=== PATIENT | female | born 1975 | race Caucasian/White ===

== ENCOUNTER → 2017-12-17 | Outpatient (CLI) | payer OTHER | END | disposition home or self-care (01) | LOC: MAMMO 14:00 | DX: Z12.31 Encounter for screening mammogram for malignant neoplasm of breast (principal) | CPT/HCPCS: 77063; 77067 ==

== ENCOUNTER → 2019-01-04 | Outpatient (CLI) | payer OTHER ==
[~2019-01-04] MED LIST: CALC-642 PO; CETI10TA22 PO; IBUP200T44 PO; MULT-121 PO; UBID200C7 PO
[2019-01-04 10:23] LABS: BASO # 0.1 x10^3/uL (0.0-0.2); BASO % 1 % (0-3); EOS # 0.2 x10^3/uL (0.0-0.7); EOS % 4 % (0-3); HEMOGLOBIN 14.1 g/dL (12.0-15.5); LYMPH # 1.4 x10^3/uL (1.0-4.8); LYMPH % 27 % (24-48); MEAN CORPUSCULAR HEMOGLOBIN 30 pg (25-35); MEAN CORPUSCULAR HGB CONC 34 g/dL (31-37); MEAN CORPUSCULAR VOLUME 90 fL (79-100); MONO # 0.3 x10^3/uL (0.0-1.1); MONO % 6 % (0-9); NEUT # 3.3 x10^3uL (1.8-7.7); NEUT % 63 % (31-73); PLATELET COUNT 296 x10^3/uL (140-400); RED BLOOD COUNT 4.68 x10^6/uL (3.50-5.40); RED CELL DISTRIBUTION WIDTH 13.3 % (11.5-14.5); WHITE BLOOD COUNT 5.3 x10^3/uL (4.0-11.0)
[2019-01-04 10:52] LABS: ALBUMIN 3.6 g/dL (3.4-5.0); CHOLESTEROL/HDL RATIO 4.3; CREATININE 0.7 mg/dL (0.6-1.0); GFR 91.3; POTASSIUM 3.7 mmol/L (3.5-5.1); TOTAL BILIRUBIN 0.3 mg/dL (0.2-1.0); TOTAL PROTEIN 7.2 g/dL (6.4-8.2)
== END | disposition home or self-care (01) ==
LOC: LAB 09:53
PROVIDERS: ATTEND Nurse Practitioner
DX: E78.2 Mixed hyperlipidemia (principal); D64.9 Anemia, unspecified; E03.9 Hypothyroidism, unspecified
CPT/HCPCS: 36415; 80053; 80061; 84443; 85025

== ENCOUNTER → 2019-01-06 | Outpatient (CLI) | payer OTHER ==
--- NOTE | 2019-01-06 13:44 | RAD ---
DATE: 01/06/2019 EXAM: MAMMO LISY SCREENING BILATERAL HISTORY: Routine screening COMPARISON: 12/17/2017 This study was interpreted with the benefit of Computerized Aided Detection (CAD). Breast Density: DENSE The breast parenchyma is dense, which could reduce the sensitivity of mammography. Breast parenchyma level density D. FINDINGS: 2-D and 3-D tomosynthesis imaging was performed in CC and MLO projections. No new or enlarging breast densities are seen. No spiculated mass is evident. Numerous bilateral microcalcifications are again identified. The distribution suggests a benign etiology such as sclerosing adenosis. IMPRESSION: There is no mammographic evidence of malignancy in either breast. BI-RADS CATEGORY: 2 BENIGN FINDING(S) RECOMMENDED FOLLOW-UP: 12M 12 MONTH FOLLOW-UP PQRS compliance statement: Patient information was entered into a reminder system with a target due date for the next mammogram. Mammography is a sensitive method for finding small breast cancers, but it does not detect them all and is not a substitute for careful clinical examination. A negative mammogram does not negate a clinically suspicious finding and should not result in delay in biopsying a clinically suspicious abnormality. "Our facility is accredited by the [employer] Mammography [employer]."
== END | disposition home or self-care (01) ==
LOC: MAMMO 12:51
PROVIDERS: ATTEND Family Medicine
DX: Z12.31 Encounter for screening mammogram for malignant neoplasm of breast (principal)
CPT/HCPCS: 77063; 77067

== ENCOUNTER → 2019-01-08 | Outpatient (CLI) | payer OTHER ==
--- NOTE | 2019-01-08 17:06 | RAD ---
Pelvic ultrasound HISTORY: Pain and bloating. Transabdominal scan Uterus measures 10.2 cm x 5.0 cm x 5.7 cm. Endometrium measures 11 mm in thickness. Ovaries are not well visualized. Endovaginal scan No evidence of uterine mass. Right ovary measures 2.6 cm with small follicles and intact blood supply. Left ovary measures 3.7 cm with intact blood supply. There is a complex nodule in the left ovary measuring 2.9 cm with hypervascularity. No significant free fluid is identified. Small nabothian cyst is noted. IMPRESSION: 1. Complex 2.9 cm nodule with vascularity in the left ovary. This could represent a hemorrhagic or complex cyst but solid mass is not excludable. This assumes that the patient is not . Recommend follow-up ultrasound in 2-6 weeks. 2. Right ovary and uterus are unremarkable. Electronically signed by: Tyree Price MD (01/08/2019 5:03 PM) [id number]
== END | disposition home or self-care (01) ==
LOC: US 13:35
PROVIDERS: ATTEND Nurse Practitioner
DX: N83.8 Other noninflammatory disorders of ovary, fallopian tube and broad ligament (principal); R14.0 Abdominal distension (gaseous)
CPT/HCPCS: 76830; 76856

== ENCOUNTER → 2019-02-03 | Outpatient (CLI) | payer OTHER ==
--- NOTE | 2019-02-03 15:25 | RAD ---
EXAM: Pelvic sonogram. HISTORY: Left ovarian cyst follow-up. TECHNIQUE: Transabdominal and transvaginal sonographic imaging of the pelvis was performed. COMPARISON: 01/08/2019. FINDINGS: The uterus measures 9.2 x 4.2 x 5.7 cm. The endometrial stripe is heterogeneous and measures 13.2 mm thickness. The right ovary measures 4.0 x 2.4 x 2.8 cm of the left ovary measures 3.3 x 1.9 x 2.5 cm. There is normal blood flow within both ovaries. There is a heterogeneous predominantly isoechoic lesion with peripheral blood flow within the right ovary measuring 1.9 cm. The previously demonstrated left ovarian lesion has resolved. There are antral follicles within both ovaries. There is no pelvic free fluid. There is a nabothian cyst within the cervix. IMPRESSION: 1. Resolution of a previously demonstrated left ovarian lesion. There is now a 1.9 cm heterogeneous lesion with peripheral blood flow within the right ovary, possibly a complex/hemorrhagic cyst. The absence of this lesion on the recent prior sonogram does not favor a solid lesion. Short-term sonographic follow-up is recommended to to confirm resolution. 2. Heterogeneous thickened endometrial stripe, likely due to the phase of the patient's menstrual cycle. Electronically signed by: Emiliana Penn MD (02/03/2019 3:21 PM) [place] [id number]
== END | disposition home or self-care (01) ==
LOC: US 13:53
PROVIDERS: ATTEND Obstetrics & Gynecology
DX: N83.8 Other noninflammatory disorders of ovary, fallopian tube and broad ligament (principal); N88.8 Other specified noninflammatory disorders of cervix uteri
CPT/HCPCS: 76830; 76856

== ENCOUNTER 2019-03-17 07:25 | Day surgery (SDC) | payer OTHER ==
[~2019-03-17 07:25] MED LIST changes: +HYDROmorphone 2 MG/ML VIAL IV PRN; +IV RINGERS,LACTATED 1000ML 1,000 ML IV SCH; +MORPHINE SULFATE 2 MG/ML VIAL. IV PRN; +ONDANSETRON PF 4 MG/2 ML VIAL. IV PRN; +PROCHLORPERAZINE 10 MG/2 ML VIAL. IV PRN; +VASOPRESSIN 20 UNIT/ML VIAL. ONE; +fentaNYL PF VIAL 100 MCG/2 ML VIAL IV PRN
[2019-03-17] MEDS ORDERED: ONDANSETRON PF 4 MG/2 ML VIAL. ONE (08:39)
[2019-03-17] MEDS ORDERED: LIDOCAINE 2% PF 5 ML VIAL. ONE (08:39)
[2019-03-17] MEDS ORDERED: MIDAZOLAM HCL/PF 2 MG/2 ML VIAL. ONE (08:39)
[2019-03-17] MEDS ORDERED: PROPOFOL 20 ML IV ONE (08:39)
[2019-03-17] MEDS ORDERED: DEXAMETHASONE SOD PHOS 4 MG/ML VIAL ONE (08:39)
[2019-03-17] MEDS ORDERED: fentaNYL PF VIAL 100 MCG/2 ML VIAL ONE ×2 (08:39→09:46)
--- NOTE | 2019-03-17 09:48 | PDOC ---
BRIEF OPERATIVE NOTE Date: March 17, 2019 Pre-Op Diagnosis menorrhagia Post-Op Diagnosis same Procedure Performed diagnostic hysteroscopy with novasure endometrial ablation Surgeon Dr. Fanny Rey Anesthesiologist Dr. Meraz Anesthesia Type: General Blood Loss <5cc IV Fluid see anesthesia records Urine Output straight cath prior Specimens Obtained none Findings 9cm uterus, prolif endometrium Complications none Operative Note ablation time 1min 43sec [id number] FANNY REY MD March 17, 2019 09:48
[2019-03-17] MEDS ORDERED: SEVOFLURANE 16 TO 30 MINUTES. IH ONE (09:50)
[2019-03-17] MEDS ORDERED: KETOROLAC 30 MG/ML INJ FOR OR. INJ ONE (09:51)
[2019-03-17] MEDS ORDERED: 0.9 % SODIUM CHLORIDE 10 ML DISP.SYRIN. IV PRN (10:00)
[2019-03-17] MEDS ORDERED: SIMETHICONE 80 MG TAB.CHEW PO PRN (10:00)
[2019-03-17] MEDS ORDERED: NALOXONE 0.4 MG/ML VIAL. IV PRN (10:00)
[2019-03-17] MEDS ORDERED: HYDROcodone/APAP 5/325MG 1 TAB TABLET PO PRN (10:00)
[2019-03-17] MEDS ORDERED: MAG HYDROX/ALUMINUM HYD/SIMETH 30 ML ORAL.SUSP PO PRN (10:00)
[2019-03-17] MEDS ORDERED: diphenhydrAMINE HCL 25 MG CAPSULE PO PRN (10:00)
[2019-03-17] MEDS ORDERED: diphenhydrAMINE 50 MG/ML VIAL IV PRN (10:00)
[2019-03-17] MEDS ORDERED: CALCIUM CARBONATE 500 MG TAB.CHEW PO PRN (10:00)
[2019-03-17 10:05] LABS: U PREG PATIENT NEGATIVE (NEG)
--- NOTE | 2019-03-17 10:09 | OP ---
DATE OF SURGERY: 03/17/2019 PREOPERATIVE DIAGNOSES: Menorrhagia with negative endometrial biopsy in the office showing a proliferative endometrium, desiring NovaSure endometrial ablation. POSTOPERATIVE DIAGNOSES: Menorrhagia with negative endometrial biopsy in the office showing a proliferative endometrium, desiring NovaSure endometrial ablation. PROCEDURE: Diagnostic hysteroscopy with NovaSure endometrial ablation. SURGEON: Stanford Rey MD SEWER TAPPER: OR personnel. ANESTHESIA: General. ANESTHESIOLOGIST: Dr. Meraz. ESTIMATED BLOOD LOSS: Less than 5 mL. IV FLUIDS: Please see anesthesia records. URINE OUTPUT: Just a straight cath prior to surgery. SPECIMENS: None. FINDINGS: A 9 cm uterus with a proliferative endometrium, otherwise normal uterine cavity. COMPLICATIONS: None. DESCRIPTION OF PROCEDURE: This patient was taken to the operating room where anesthesia was placed. The patient was placed in dorsal lithotomy position in Kraig stirrups. The patient's vagina was prepped and draped in the normal sterile fashion and a straight cath urine was done prior to my arrival. Upon my arrival, a timeout was performed. Once everyone agreed, a weighted speculum was placed in the patient's vagina. A single-tooth tenaculum was used to grasp the anterior lip of the cervix. She was dilated with the Hegar dilators to a 9. She sounded to 9 cm. The diagnostic hysteroscopy was performed with the above findings. The NovaSure functional uterine cavity length was set at 6. It was placed in, allowed to open up and the width settled at 4.5. So, the machine was set to 6 for the length and 4.5 for the width. The NovaSure device was enabled and performed a cavity assessment check. Once it passed the cavity assessment check, went straight into the ablation process, which lasted 1 minute and 43 seconds. Once it was done, the device was removed. The tenaculum was removed from the anterior lip of the cervix. There was no active bleeding and the procedure was ended. The weighted speculum was removed and the patient is currently being awakened from anesthesia. STANFORD REY MD DR: LUKE/erica JOB#: [id number] / [id number]
[2019-03-17] MEDS ORDERED: HYDROcodone/APAP 5/325MG 1 TAB TABLET PO ONE (10:15)
[2019-03-17 10:35] VITALS: BP 125/75
== END 2019-03-17 10:58 | disposition home or self-care (01) ==
LOC: SURG 07:25
PROVIDERS: ATTEND Obstetrics & Gynecology
DX: N92.0 Excessive and frequent menstruation with regular cycle (principal); Z98.890 Other specified postprocedural states; Z72.89 Other problems related to lifestyle; Z87.891 Personal history of nicotine dependence; Z79.899 Other long term (current) drug therapy; Z80.3 Family history of malignant neoplasm of breast; Z83.3 Family history of diabetes mellitus; Z81.1 Family history of alcohol abuse and dependence; Z81.8 Family history of other mental and behavioral disorders
CPT/HCPCS: 58563; 81025; A7015; J1100; J1885; J2001; J2250; J2405; J2704; J3010; J7030; J3490

== ENCOUNTER 2019-07-12 13:40 | Emergency (ER) | payer OTHER ==
[~2019-07-12] VITALS: Ht 180.3 cm; Wt 89.6 kg
[~2019-07-12 13:40] MED LIST changes: -HYDROmorphone 2 MG/ML VIAL IV PRN; -IV RINGERS,LACTATED 1000ML 1,000 ML IV SCH; -MORPHINE SULFATE 2 MG/ML VIAL. IV PRN; -ONDANSETRON PF 4 MG/2 ML VIAL. IV PRN; -PROCHLORPERAZINE 10 MG/2 ML VIAL. IV PRN; -VASOPRESSIN 20 UNIT/ML VIAL. ONE; -fentaNYL PF VIAL 100 MCG/2 ML VIAL IV PRN
[2019-07-12 13:54] VITALS: BP 138/80
[2019-07-12] MEDS ORDERED: methylPREDNISolone SOD SUCC PF 125 MG/2 ML VIAL. IM ONE (14:15)
[2019-07-12] MEDS ORDERED: KETOROLAC 60 MG/2 ML VIAL. IM ONE (14:15)
[2019-07-12] MEDS ORDERED: METH4TAB2 PO (14:35)
[2019-07-12] MEDS ORDERED: HYDR-3164 PO (14:35)
[2019-07-12] MEDS ORDERED: CYCL10TA2 PO (14:35)
--- NOTE | 2019-07-12 14:35 | PHYS DOC ---
Past Medical History Past Medical History: Other Additional Past Medical Histor: lower back pain Past Surgical History: Tonsillectomy, Other Additional Past Surgical Histo: microdiscetomy Alcohol Use: None Drug Use: None Adult General Chief Complaint Chief Complaint: LOWER BACK PAIN OR INJURY HPI HPI Patient is a 43 year old female with history of microdiscectomy who presents to the ED today complaining of 8 out of 10 left low back pain radiating to the left hip that began 2 days ago. Patient describes the pain as tightness worse on sitt ing up. She states sometimes laying on her back relieves the pain. Denies any known injury. Denies any loss of bowel/bladder function. She states the pain has gotten increasingly worse today, she states she's been using ibuprofen with minimal relief. Review of Systems Review of Systems Constitutional: Denies fever or chills [] GI: Denies abdominal pain, nausea, vomiting, bloody stools or diarrhea [] : Denies dysuria or hematuria [] Musculoskeletal: Reports left low back pain radiating to the left lower extremity Integument: Denies rash or skin lesions [] Neurologic: Denies headache, focal weakness or sensory changes [] All other systems were reviewed and found to be within normal limits, except as documented in this note. Current Medications Current Medications Current Medications Medications (Trade) Dose Ordered Sig/Anastacio Start Time Stop Time Status Last Admin Dose Admin Ketorolac Tromethamine (Toradol Im) 60 mg 1X ONCE 07/12/19 14:15 07/12/19 14:16 DC Methylprednisolone Sodium Succinate (SOLU-Medrol 125MG VIAL) 125 mg 1X ONCE 07/12/19 14:15 07/12/19 14:16 DC Allergies Allergies Allergies Coded Allergies Type Severity Reaction Last Updated Verified No Known Drug Allergies 03/17/19 No Physical Exam Physical Exam Constitutional: Well developed, well nourished, no acute distress, non-toxic appearance. [] Abdomen: Bowel sounds normal, soft, no tenderness, no masses, no pulsatile masses. [] Skin: Warm, dry, no erythema, no rash. [] Back: Slight tenderness on palpation of paraspinal muscles the left lumbar spine no midline tenderness, no CVA tenderness. Negative bilateral leg straight ra ises. Extremities: No tenderness, no cyanosis, no clubbing, ROM intact, no edema. [] Neurologic: Alert and oriented X 3, normal motor function, normal sensory function, no focal deficits noted. [] Psychologic: Affect normal, judgement normal, mood normal. [] Current Patient Data Vital Signs Vital Signs Date Time Temp Pulse Resp B/P (MAP) Pulse Ox O2 Delivery O2 Flow Rate FiO2 07/12/19 13:54 98.3 70 16 138/80 (99) 98 Room Air 98.3 EKG EKG [] Radiology/Procedures Radiology/Procedures [] Course & Med Decision Making Course & Med Decision Making Pertinent Labs and Imaging studies reviewed. (See chart for details) This is a 43-year-old female patient presented to the ED today with left low back pain radiating to the left hip that began 2 days ago, no known injury. Pain is gotten worse today. Patient was given Toradol and Solu-Medrol in the ED. Follow-up with primary care doctor in the next 1 week. She has no cauda equina syndrome symptoms. Dragon Disclaimer Dragon Disclaimer This electronic medical record was generated, in whole or in part, using a voice recognition dictation system. Departure Departure Impression: Primary Impression: Low back pain Disposition: 01 HOME, SELF-CARE Condition: STABLE Referrals: COOPER CARBAJAL MD (PCP) follow up in one week Patient Instructions: Back Pain, Adult, [id number] Additional Instructions: You were evaluated in the emergency room for low back pain. Take the medication provided as ordered, you can apply heat or ice to your low back. Consider seeing a chiropractor for an adjustment. Follow-up with your doctor in the next 1-2 weeks. Scripts Hydrocodone/Apap 5-325 (NORCO 5-325 TABLET) 1 Each Tablet 1 TAB PO Q6HRS PRN for PAIN, #20 TAB Prov: MUTUNGA,LIANET MUSIC CATALOGUER 07/12/19 Cyclobenzaprine Hcl (CYCLOBENZAPRINE HCL) 10 Mg Tablet 1 TAB PO TID, #30 TAB Prov: MUTUNGA,LIANET MUSIC CATALOGUER 07/12/19 Methylprednisolone (MEDROL) 4 Mg Tab.ds.pk 1 PKG PO UD, #1 PKG Prov: MUTUNGA,LIANET MUSIC CATALOGUER 07/12/19 Problem Qualifiers Primary Impression: Low back pain Chronicity: acute Back pain laterality: left Sciatica presence: with sciatica Sciatica laterality: sciatica of left side Qualified Codes: M54.42 - Lumbago with sciatica, left side LIANET MEJIA APRN Jul 12, 2019 14:35
== END 2019-07-12 14:58 | disposition home or self-care (01) ==
LOC: ER 13:40
DX: M54.42 Lumbago with sciatica, left side (principal); M25.552 Pain in left hip
CPT/HCPCS: 96372; 99284; J1885; J2930

== ENCOUNTER → 2020-06-13 | Outpatient (CLI) | payer OTHER ==
[~2020-06-13] MED LIST changes: -CETI10TA22 PO; +CETI10TA24 PO; +CYCL10TA2 PO; +HYDR-3164 PO; +METH4TAB2 PO
[2020-06-13 08:38] LABS: BASO % 1 % (0-3); EOS # 0.2 x10^3/uL (0.0-0.7); EOS % 4 % (0-3); HEMATOCRIT 41.7 % (36.0-47.0); HEMOGLOBIN 14.2 g/dL (12.0-15.5); LYMPH # 1.2 x10^3/uL (1.0-4.8); LYMPH % 24 % (24-48); MEAN CORPUSCULAR HEMOGLOBIN 31 pg (25-35); MEAN CORPUSCULAR HGB CONC 34 g/dL (31-37); MEAN CORPUSCULAR VOLUME 90 fL (79-100); MONO # 0.3 x10^3/uL (0.0-1.1); MONO % 6 % (0-9); NEUT # 3.3 x10^3/uL (1.8-7.7); NEUT % 65 % (31-73); PLATELET COUNT 307 x10^3/uL (140-400); RED BLOOD COUNT 4.63 x10^6/uL (3.50-5.40); RED CELL DISTRIBUTION WIDTH 12.6 % (11.5-14.5)
[2020-06-13 09:08] LABS: ALBUMIN 3.7 g/dL (3.4-5.0); ALBUMIN/GLOBULIN RATIO 1.1 (1.0-1.7); CALCIUM 8.5 mg/dL (8.5-10.1); CREATININE 0.9 mg/dL (0.6-1.0); POTASSIUM 3.7 mmol/L (3.5-5.1); TOTAL BILIRUBIN 0.4 mg/dL (0.2-1.0); TOTAL PROTEIN 7.2 g/dL (6.4-8.2)
[2020-06-13 09:09] LABS: CHOLESTEROL/HDL RATIO 4.8
== END | disposition home or self-care (01) ==
LOC: LAB 08:17
PROVIDERS: ATTEND Nurse Practitioner
DX: E78.2 Mixed hyperlipidemia (principal)
CPT/HCPCS: 36415; 80053; 80061; 84443; 85025

== ENCOUNTER → 2020-06-19 | Outpatient (CLI) | payer OTHER ==
--- NOTE | 2020-06-19 17:24 | RAD ---
EXAM: BILATERAL DIGITAL 3D SCREENING MAMMOGRAPHY. HISTORY: Routine mammographic screening. TECHNIQUE: Bilateral digital 3D and tomographic images were obtained in CC and MLO projections. Computer-aided detection was applied. COMPARISON: 01/06/2019. COMPOSITION: D. The breasts are extremely dense, which lowers the sensitivity of mammography. FINDINGS: There are no suspicious masses, microcalcifications or architectural distortion. The parenchymal pattern is stable. Scattered calcifications are benign. BI-RADS CATEGORY 2: Benign. RECOMMENDATION: 1. Routine screening mammography in one year. If mammography demonstrates dense breast tissue (heterogenously dense or extremely dense, category C or D), which could hide abnormalities, and if other risk factors for breast cancer have been identified, supplemental screening tests that may be suggested by the ordering physician may be of benefit. Dense breast tissue, in and of itself, is a relatively common condition. Therefore, this information is not provided to cause undue concern, but rather to raise awareness and to promote discussion with the referring physician regarding the presence of other risk factors, in addition to dense breast tissue. The results of this mammography examination is provided to the patient and referring physician. The patient should contact their referring physician if any questions or concerns exist regarding this report. PQRS compliance statement - Patient information was entered into a reminder system with a target due date for the next mammogram. "Our facility is accredited by the [employer] Mammography [employer]." Electronically signed by: Misha Herzog MD (06/19/2020 5:21 PM) [id number]
== END | disposition home or self-care (01) ==
LOC: MAMMO 14:12
PROVIDERS: ATTEND Nurse Practitioner
DX: Z12.31 Encounter for screening mammogram for malignant neoplasm of breast (principal); N64.89 Other specified disorders of breast
CPT/HCPCS: 77063; 77067

== ENCOUNTER → 2021-12-12 | Outpatient (CLI) | payer OTHER ==
[~2021-12-12] MED LIST changes: -CETI10TA24 PO; +CETI10TA74 PO; +CYCL10TA19 PO; -CYCL10TA2 PO
[2021-12-12 08:37] LABS: BASO # 0.1 x10^3/uL (0.0-0.2); BASO % 1 % (0-3); EOS # 0.2 x10^3/uL (0.0-0.7); EOS % 4 % (0-3); HEMATOCRIT 42.4 % (36.0-47.0); HEMOGLOBIN 13.8 g/dL (12.0-15.5); LYMPH # 1.4 x10^3/uL (1.0-4.8); LYMPH % 25 % (24-48); MEAN CORPUSCULAR HEMOGLOBIN 30 pg (25-35); MEAN CORPUSCULAR HGB CONC 33 g/dL (31-37); MEAN CORPUSCULAR VOLUME 92 fL (79-100); MONO # 0.3 x10^3/uL (0.0-1.1); MONO % 6 % (0-9); NEUT # 3.5 x10^3/uL (1.8-7.7); NEUT % 64 % (31-73); PLATELET COUNT 309 x10^3/uL (140-400); RED BLOOD COUNT 4.61 x10^6/uL (3.50-5.40); RED CELL DISTRIBUTION WIDTH 13.1 % (11.5-14.5); WHITE BLOOD COUNT 5.4 x10^3/uL (4.0-11.0)
[2021-12-12 08:49] LABS: ALBUMIN 3.8 g/dL (3.4-5.0); ALBUMIN/GLOBULIN RATIO 1.2 (1.0-1.7); CALCIUM 8.8 mg/dL (8.5-10.1); CREATININE 0.7 mg/dL (0.6-1.0); GFR 90.1; POTASSIUM 4.4 mmol/L (3.5-5.1); TOTAL BILIRUBIN 0.3 mg/dL (0.2-1.0); TOTAL PROTEIN 7.1 g/dL (6.4-8.2)
[2021-12-12 08:50] LABS: CHOLESTEROL/HDL RATIO 4.6
== END ==
LOC: LAB 07:39
PROVIDERS: ATTEND Family Medicine
DX: Z01.419 Encounter for gynecological examination (general) (routine) without abnormal findings (principal); E78.5 Hyperlipidemia, unspecified
CPT/HCPCS: 36415; 80053; 80061; 84443; 85025

== ENCOUNTER → 2022-02-21 | Day surgery (SDC) | payer OTHER ==
[~2022-02-21] VITALS: Ht 177.8 cm; Wt 78.0 kg
[~2022-02-21] MED LIST changes: +IV RINGERS,LACTATED 1000ML 1,000 ML IV SCH; +LIDOCAINE 2% PF 5 ML VIAL. ONE; +PROPOFOL 10 MG/ML (20ML) VIAL. IV ONE
[2022-02-21 08:25] VITALS: BP 131/81
[2022-02-21 10:13] VITALS: BP 120/63
--- NOTE | 2022-02-22 18:07 | PATHOLOGY ---
[facility] Accession Number: [id number] . 01 Material submitted: . PART A: small bowel - SMALL BOWEL BIOPSY PART B: gastrointestinal site - GASTRIC ANTRUM AND BODY BIOPSY PART C: esophagus - DISTAL ESOPHAGUS BIOPSY. Modifiers: distal PART D: colon - TRANSVERSE COLON POLYP. Modifiers: transverse PART E: rectum - RECTAL POLYP . 01 Clinical history: . GERD/SCREENING . 02 Diagnosis: A. Small bowel biopsy: - No diagnostic abnormalities. . B. Gastric biopsies, gastric body and antrum: - Chronic gastritis, mild. . C. Esophageal biopsy, distal esophagus: - Reflux changes. . D. Colon biopsy, transverse colon polyp: - Hyperplastic polyp/prominent mucosal fold. . E. Colorectal biopsy, rectal polyp: - Hyperplastic polyp with 2 mucosal-associated lymphoid aggregates. . (JPM:tawnya; 02/22/2022) MBR 02/22/2022 1350 Local . 02 Comment: Sections of the small bowel biopsy reveal segments of duodenal mucosa. Where best oriented, the mucosal villi show no sprue-like changes or significant inflammatory changes. . Sections of the gastric biopsy reveal segments of gastric body and antral/body transition mucosa. The gastric body mucosa shows superficial congestion and slight chronic inflammation. The antral/body transition mucosa shows congestion and mild chronic inflammation. A properly controlled immunoperoxidase stain for Helicobacter is negative for Helicobacter organisms. . Sections of the distal esophageal biopsy reveal segments of esophagogastric and gastric mucosa showing mild to focal moderate chronic inflammation. The squamous esophageal mucosa is hyperplastic. The findings are consistent with reflux changes. There is no evidence of Barbosa's change, dysplasia or malignancy. . Sections of the transverse colon polyp biopsy reveal a segment of colonic mucosa consistent with hyperplastic polyp/prominent mucosal fold. There are no adenomatous changes or evidence of malignancy. . Sections of the rectal polyp biopsy reveal a hyperplastic polyp with 2 mucosal-associated lymphoid aggregates. There are no adenomatous changes or evidence of malignancy. . (JPM:sales ledger administrator; 02/22/2022) . . . Special stain performed: Immunoperoxidase stain for Helicobacter on B1 . 02 Electronically signed: . Wai Agudelo MD, Pathologist NPI- [id number] . 01 Gross description: . A. The specimen is received in formalin, labeled "Anna Carline, small bowel biopsy." Received are three segments of pale pena tissue ranging in size from 0.2-0.5 cm in maximum dimensions. The specimen is submitted entirely in cassette A1. . B. The specimen is received in formalin, labeled "Anna Carline, gastric antrum and body biopsy". Received are four segments of pale pena tissue ranging in size from 0.4-0.6 cm in maximum dimensions. The specimen is submitted entirely in cassette B1. . C. The specimen is received in formalin, labeled "Anna Carline, distal esophagus biopsy". Received are four segments of pale pena tissue ranging in size from 0.3-0.4 cm in maximum dimensions. The specimen is submitted entirely in cassette C1. . D. The specimen is received in formalin, labeled "Anna Carline, transverse colon polyp". Received is a segment of pale pena tissue measuring 0.6 cm in maximum dimensions. The specimen is submitted entirely in cassette D1. . E. The specimen is received in formalin, labeled "Anna Carline, rectal polyp". Received is a segment of pale pena tissue measuring 0.5 cm in maximum dimensions. The specimen is submitted entirely in cassette E1. (CAA; 02/21/2022) QAC/QAC 02/22/2022 1322 Local . 02 Pathologist provided ICD-10: K29.50, K21.00, K63.5, K62.1 . 02 CPT . 943721, [id number], 808818, 149559, [id number], [id number] Specimen Comment: A courtesy copy of this report has been sent to [phone], [phone] Specimen Comment: [id number] Specimen Comment: Report sent to , DR MOON / DR CARBAJAL Specimen Comment: A duplicate report has been generated due to demographic updates. Performed at: [address] [place] [address] [id number] [facility] [address], [place], [place] [id number] MD Mat Shetty MD Phone: [phone] Performed at: [address] [id number] MD Wai Agudelo MD Phone: [phone]
== END | disposition home or self-care (01) ==
LOC: ENDOS 07:55
PROVIDERS: ATTEND Internal Medicine Gastroenterology
DX: R10.9 Unspecified abdominal pain (principal); K64.0 First degree hemorrhoids; K63.5 Polyp of colon; K62.1 Rectal polyp; K21.00 Gastro-esophageal reflux disease with esophagitis, without bleeding; K29.50 Unspecified chronic gastritis without bleeding; K31.89 Other diseases of stomach and duodenum; K63.89 Other specified diseases of intestine; Z87.440 Personal history of urinary (tract) infections; Z98.51 Tubal ligation status; Z98.890 Other specified postprocedural states; Z79.899 Other long term (current) drug therapy; Z72.89 Other problems related to lifestyle; Z80.0 Family history of malignant neoplasm of digestive organs
CPT/HCPCS: 43239; 45380; 81025; J2704